=== PATIENT | male | born 1955 | race Caucasian/White ===

== ENCOUNTER → 2022-07-07 13:20 | Outpatient (CLI) | payer OTHER, SELFPAY ==
--- NOTE | ~2022-07-07 | MR_ITS ---
EXAMINATION: MR shoulder LT wo con DATE: 07/07/2022 15:34 INDICATION: Left shoulder dislocation. Left shoulder pain. TECHNIQUE: Magnetic resonance imaging (MRI) of the left shoulder was performed without intravenous co ntrast. Sequences included axial PD-weighted FS FSE, coronal oblique PD-weighted FS FSE, coronal obli que T2-weighted FS FSE, sagittal PD-weighted FS FSE, and sagittal T1-weighted SE. COMPARISON: None. FINDINGS: Coracoacromial arch: The acromion undersurface is curved in morphology (type II). The coracoacromial ligament is normal. M oderate acromioclavicular osteoarthritis with small marginal osteophytes and mild subarticular edema- like signal changes. Rotator cuff: Moderate supraspinatus and infraspinatus tendinopathy. Shallow bursal sided tear measuring 7 mm AP al jad the middle facet footplate of the infraspinatus tendon involving less than one third of the tendo n thickness. Mild teres minor tendinopathy. Mild subscapularis tendinopathy without tear. Normal rota tor cuff muscle bulk and signal. Biceps tendon, glenoid labrum and glenohumeral cartilage: Long head of the biceps tendon is normal. Small accessory head of the long head biceps tendon which b lends with the anterior supraspinatus tendon. Small linear fluid signal intensity tear of the 12:00-1 1:00 position of the posterior superior glenoid labrum. More irregular tear of the anteroinferior lab rum with amorphous increased signal and poorly defined peripheral margins. There is thickening and mi ld increased signal of the inferior glenoid labrum which could be related to partial tear or can also be seen in the setting of adhesive capsulitis. Mild partial-thickness cartilage loss with smooth cho ndral surface at the cephalad third of the glenoid. Normal cartilage along the humeral head. Fluid: Physiologic amount of fluid in the glenohumeral joint and biceps tendon sheath. No loose osteochondr al bodies. Moderate amount of fluid in the subacromial/subdeltoid bursa consistent with moderate burs itis. Bones: Mild marrow edema at the posterior superolateral aspect of the humeral head which could be related ei ther the adjacent rotator cuff disease or potentially a very small Hill-Sachs fracture trough. No oth er lesions suspicious for fracture.. No pathologic marrow replacing process. IMPRESSION: 1. Mild subscapularis and moderate supraspinatus and infraspinatus tendinopathy with small shallow ar ticular sided tear of the distal infraspinatus tendon. 2. Small tear at the posterosuperior glenoid labrum and additional small more irregular appearing tea r at the anteroinferior labrum the latter which could be related to a reported prior glenohumeral dis location. 3. Mild marrow edema at the posterior superolateral aspect of the left humeral head which could relat e either the adjacent rotator cuff disease or a very shallow Hill-Sachs fracture trough also related to a glenohumeral dislocation. 4. Moderate acromioclavicular osteoarthritis with moderate underlying subacromial/subdeltoid bursitis . Reviewed, dictated and finalized at location B. [facility] IMPRESSION: 1. Mild subscapularis and moderate supraspinatus and infraspinatus tendinopathy with small shallow articular sided tear of the distal infraspinatus tendon. 2. Small tear at the posterosuperior glenoid labrum and additional small more i rregular appearing tear at the anteroinferior labrum the latter which could be related to a reported prior glenohumeral dislocation. 3. Mild marrow edema at the posterior superolateral aspect of the left humeral head which could relate either the adjacent rotator cuff disease or a very shal low Hill-Sachs fracture trough also related to a glenohumeral dislocation. 4. Moderate acromioclavicular ost
== END ==
PROVIDERS: PCP Physician Assistant; Visit Provider Physician Assistant
DX: M19.012 Primary osteoarthritis, left shoulder (principal)
CPT/HCPCS: 73221